=== PATIENT | female | born 1960 | race African-American/Black ===

== ENCOUNTER 2018-09-14 19:15 | Emergency (ER) | payer OTHER, MEDICAID ==
[~2018-09-14] VITALS: Ht 170.2 cm; Wt 83.9 kg
[2018-09-14 21:33] VITALS: BP 144/98
[2018-09-14] MEDS ORDERED: HYDROcodone-ACET 10/325MG TAB PO ONE (22:15)
[2018-09-14] MEDS ORDERED: BACLOFEN 10 MG TAB PO ONE (22:15)
== END 2018-09-14 22:34 | disposition home or self-care (01) ==
LOC: ER 19:15
DX: M62.838 Other muscle spasm (principal); M54.2 Cervicalgia
CPT/HCPCS: 70450; 72125; 73030

== ENCOUNTER 2018-09-29 19:41 | Emergency (ER) | payer OTHER, MEDICAID ==
[~2018-09-29] VITALS: Ht 170.2 cm; Wt 97.5 kg
[2018-09-29 20:06] VITALS: BP 109/76
== END 2018-09-29 23:38 | disposition left against medical advice (07) ==
LOC: ER 19:44
DX: M79.662 Pain in left lower leg (principal); Z53.21 Procedure and treatment not carried out due to patient leaving prior to being seen by health care provider
CPT/HCPCS: 73590

== ENCOUNTER 2019-05-29 02:55 | Emergency (ER) | payer OTHER, MEDICAID ==
[~2019-05-29] VITALS: Ht 170.2 cm; Wt 90.3 kg
[2019-05-29 03:04] VITALS: BP 143/98
[2019-05-29] MEDS ORDERED: LORazepam 0.5 MG TAB PO ONE (04:00)
== END 2019-05-29 04:55 | disposition home or self-care (01) ==
LOC: ER 03:01
DX: F41.9 Anxiety disorder, unspecified (principal); G47.00 Insomnia, unspecified

== ENCOUNTER 2020-05-04 13:07 | Emergency (ER) | payer OTHER, MEDICAID ==
[~2020-05-04] VITALS: Ht 167.6 cm; Wt 90.7 kg
[2020-05-04 13:20] VITALS: BP 142/77
== END 2020-05-04 16:21 | disposition home or self-care (01) ==
LOC: ER 13:07
DX: S02.609A Fracture of mandible, unspecified, initial encounter for closed fracture (principal); S02.40FA Zygomatic fracture, left side, initial encounter for closed fracture; G89.29 Other chronic pain; Y08.89XA Assault by other specified means, initial encounter; Y93.89 Activity, other specified; Y92.89 Other specified places as the place of occurrence of the external cause; Y99.8 Other external cause status
CPT/HCPCS: 70486